=== PATIENT | male | born 1985 | race Caucasian/White ===

== ENCOUNTER → 2017-09-10 15:04 | Outpatient (CLI) | payer OTHER, SELFPAY ==
--- NOTE | 2017-09-10 15:07 | CT_ITS ---
STUDY: CTA CHEST REASON FOR EXAM: Male, 32 years old. Chest pain. History of PE. RADIATION DOSAGE (If Supplied By Facility): CTDIvol = ( 16.72 ) mGy, DLP = ( 797.14 ) mGycm TECHNIQUE: The examination was performed with the intravenous administration of 100 ml of Isovue 370 contrast material. Post-processing of the angiographic images was performed, with multiplanar reformation and 3D reconstruction. Individualized dose optimization techniques were used for this CT. COMPARISON: CTA of the chest, April 05, 2017. FINDINGS: Normal enhancement of the main pulmonary artery and right and left pulmonary arteries. There is small nonoccluding pulmonary emboli. Right lower lobe peripheral arteries. These are best seen on images 86 through 118. There are minimal nonobstructing pulmonary emboli in the left lower lobe peripheral pulmonary arteries are best seen on image 112. Normal thoracic aorta and visualized great vessels. There is no demonstrated aortic dissection. Normal heart and pericardium. Normal mediastinum. Normal hilar regions. Normal visualized trachea and bronchi. The lungs are well expanded. Normal pulmonary parenchyma. Normal pleura. Normal chest wall structures. Normal osseous structures. Normal visualized upper abdomen. CT/CTA Chest W/WO Contrast IMPRESSION: 1. Nonobstructing pulmonary emboli in the bilateral lower lobe peripheral pulmonary arteries. This was not seen on study of April 05, 2017. 2. No acute cardiopulmonary disease. N.B. : Dr. Elena Grissom, Covering Physician, confirmed on 09/10/2017 16:33:01 (ET) that the referring physician received the results and did not require a verbal consultation. Electronically Signed: Anival Hicks DO at 16:28 EDT Tel [phone], Service support , N.B. : Dr. Elena Grissom, Covering Physician, confirmed on 09/10/2017 16:33:01 (ET) that the referring physician received the results and did not require a verbal consultation.
--- NOTE | 2017-09-10 15:53 | RAD_ITS ---
STUDY: X-RAY - LEFT CALCANEUS REASON FOR EXAM: Male, 32 years old. Heel pain TECHNIQUE: 2 view(s) of the calcaneus were obtained. COMPARISON: None. FINDINGS: Normal visualized calcaneus. Normal visualized soft tissue. RAD/Calcaneus min 2 Views IMPRESSION: Normal x-ray examination of the calcaneus. Electronically Signed: Jose Manuel Vegas DO at 21:23 EDT Tel [phone], Service support ,
== END ==
PROVIDERS: Family Provider Internal Medicine; PCP Internal Medicine; Visit Provider Internal Medicine
DX: M79.672 Pain in left foot (principal); R07.9 Chest pain, unspecified
CPT/HCPCS: 71275; 73650; Q9967

== ENCOUNTER 2017-09-10 15:59 | Inpatient (IN) | payer OTHER, SELFPAY ==
[2017-09-10] VITALS (11 sets, daily range): BP systolic 120–153; BP diastolic 62–79; PULSE 68–113; RESP 12–18; TEMP 36.6–37.1; O2SAT 96–98; BMI 35.4
--- NOTE | 2017-09-10 16:23 | EKG12_ITS ---
Test Reason : SOB Blood Pressure : / mmHG Vent. Rate : 083 BPM Atrial Rate : 083 BPM P-R Int : 132 ms QRS Dur : 092 ms QT Int : 360 ms P-R-T Axes : 044 051 013 degrees QTc Int : 423 ms Normal sinus rhythm Nonspecific ST and T wave abnormality Abnormal ECG Confirmed by WENDIE STOLL, AMARILIS ([id number]), editorial assistant LEOBARDO FRAUSTO ([id number]) on 09/15/2017 2:17:14 PM Referred By: DALE Confirmed By:AMARILIS PRESSLEY MD
--- NOTE | 2017-09-10 16:24 | VDLE_ITS ---
Reason For Study: PE Procedure LEFT Exam performed portable in ED. GSV is normal. The exam was diagnostic. CFV is compressible, spontaneous, phasic, A preliminary report was called and/or competent, and demonstrates normal faxed to Dr. Urbina. augmentation. Prox and Mid FV are compressible with normal venous flow patterns. Distal FV, POP V, T/P Trunk, PTV, Peroneal V, and Gastroc V are dilated and noncompressible. Interpretation Summary Acute deep vein thrombosis is noted in the left distal femoral vein. Acute deep vein thrombosis is noted in the left popliteal vein. Acute deep vein thrombosis is noted in the left tibio-peroneal trunk. Acute deep vein thrombosis is noted in the left posterior tibial vein. Acute deep vein thrombosis is noted in the left peroneal vein. Acute deep vein thrombosis is noted in the left gastrocnemius vein. The left common femoral vein and proximal/mid-femoral vein are patent, compressible, and competent. The left great saphenous vein is patent and compressible segmentally. Ordering Physician: Dougie Urbina Referring Physician: Heaven Cota M.D. Performed By: Vega Burton RVT
--- NOTE | 2017-09-10 16:42 | ED.RN ---
[facility] in pt room doing venous doppler.
[2017-09-10 16:45] LABS: Absolute Lymphocyte Count 3.11 X10^3/ul (0.83-4.51); Absolute Neutrophil Count 6.5 X10^3/uL (2.0-7.7); Basophil# 0.04 X10^3/uL; Basophil% 0.4 % (0-1); Eosinophil# 0.33 X10^3/uL; Hematocrit 42.3 % (40-54); Hemoglobin 14.1 g/dl (13.0-16.5); Lymphocyte # 3.11 X10^3/ul (4.0); Lymphocyte % 28.3 % (19-41); Mean Corp Hgb Conc 33.3 g/gl (32-36); Mean Corpuscular Hgb 31.3 pg (27.0-32.0); Mean Corpuscular Volume 93.8 fL (80-94); Monocyte# 0.96 X10^3/uL; Monocyte% 8.7 % (0-10); Neutrophil # 6.54 X10^3/uL (2.7-7.7); Neutrophil % 59.4 % (47-70); Platelet Count 291 K/mm3 (150-450); RBC Distribution Width SD 44.4 fl (35.1-43.9); Red Blood Count 4.51 M/mm3 (4.6-6.2)
[2017-09-10] MEDS: Ondansetron 4 MG/2 ML Vial IV (16:48)
[2017-09-10] MEDS: Morphine 4 MG/ML Syringe IV ×2 (16:48→18:28)
[2017-09-10 16:53] LABS: POSITIVE COUNT NO; POSITIVE DIFFERENTIAL NO; POSITIVE MORPHOLOGY NO
[2017-09-10 17:03] LABS: ALB/GLOB Ratio 1.1 RATIO (0.9-2.4); AST(SGOT) 16 U/L (15-37); Alanine Aminotransfer ALT/SGPT 27 U/L (16-61); Albumin, Serum 3.7 g/dL (3.2-5.0); Alkaline Phosphatase 86 U/L (45-117); Anion Gap 5 (5-15); BUN 14 mg/dL (7-18); BUN/Creat Ratio 14.3 RATIO (10-20); Calcium,Total 8.6 mg/dL (8.5-10.1); Chloride 109 mmol/L (98-107); Creatinine, Serum 0.98 mg/dL (0.70-1.30); EST Glomerular Filtration Rate 93 mL/min (>60); Est Glom Filt Rate - Afr Amer 113 mL/min (>60); Estimated Creatinine Clearance 123.49 ml/min; Globulin 3.5 g/dL (2.2-4.2); Glucose 83 mg/dL (74-106); Protein, Total 7.2 g/dL (6.4-8.2); Sodium Level 143 mmol/L (136-145)
[2017-09-10 17:16] LABS: Prothrombin Time (Protime)PT. 12.8 SECONDS (11.7-14.9)
[2017-09-10 17:17] LABS: Partial Thromboplast Time 27.1 Seconds (24.1-36.2)
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
--- NOTE | 2017-09-10 19:24 | EKG12_ITS ---
Test Reason : PE Blood Pressure : / mmHG Vent. Rate : 069 BPM Atrial Rate : 069 BPM P-R Int : 124 ms QRS Dur : 092 ms QT Int : 378 ms P-R-T Axes : 014 044 -04 degrees QTc Int : 405 ms Normal sinus rhythm with sinus arrhythmia Nonspecific ST abnormality Abnormal ECG When compared with ECG of 10-SEP-2017 16:46, MANUAL COMPARISON REQUIRED, DATA IS UNCONFIRMED Confirmed by WENDIE STOLL, AMARILIS ([id number]), magazine editor LEOBARDO FRAUSTO ([id number]) on 09/15/2017 3:29:48 PM Referred By: DAYTON Confirmed By:AMARILIS PRESSLEY MD
[2017-09-10] MEDS: 0.9% Normal Saline 1,000 ML 100 ML IV (19:47)
[2017-09-10] MEDS: oxyCODONE 5 MG Tablet PO (19:47)
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
[2017-09-10] MEDS: HYDROmorphone 0.5 MG/0.5 ML SYRINGE IV (20:50)
[2017-09-10] MEDS: Enoxaparin 150 MG/ML Syringe 130 MG SC (20:51)
[2017-09-10 21:48] LABS: BNP,B-Type NATRIURETIC PEPTIDE 13.6 pg/mL (0-100)
[2017-09-11] VITALS (18 sets, daily range): BP systolic 101–126; BP diastolic 54–66; PULSE 44–76; RESP 12–18; TEMP 36.6–37; O2SAT 95–100
[2017-09-11] MEDS: HYDROmorphone 0.5 MG/0.5 ML SYRINGE IV ×4 (00:05→11:38)
[2017-09-11] MEDS: 0.9% Normal Saline 1,000 ML 100 ML IV ×2 (05:25→14:52)
[2017-09-11 06:29] LABS: Amphetamine Urine VISTA NEGATIVE (<1000 ng/mL); Barbiturate Urine VISTA NEGATIVE (< 200 ng/mL); Benzodiazepine Urine VISTA NEGATIVE (< 200 ng/mL); Cocaine Urine VISTA NEGATIVE (< 300 ng/mL); Ecstacy Urine VISTA NEGATIVE (< 500 ng/mL); Methadone Urine VISTA NEGATIVE (< 300 ng/mL); PCP Urine VISTA NEGATIVE (< 25 ng/mL); THC Urine VISTA POSITIVE (< 50 ng/mL); Vista UDS pH Range 5
[2017-09-11 07:14] LABS: Hematocrit 39.9 % (40-54); Hemoglobin 13.5 g/dl (13.0-16.5); Mean Corp Hgb Conc 33.8 g/gl (32-36); Mean Corpuscular Hgb 32.1 pg (27.0-32.0); Mean Platelet Vol. 9.2 fl (6.2-12.0); Platelet Count 278 K/mm3 (150-450); RBC Distribution Width CV 13.1 % (11.6-14.6); RBC Distribution Width SD 44.2 fl (35.1-43.9); White Blood Count 9.2 K/mm3 (4.4-11.0)
[2017-09-11 07:15] LABS: Scan Indicated on CBC? Y/N NO
[2017-09-11 07:41] LABS: Anion Gap 5 (5-15); BUN 12 mg/dL (7-18); BUN/Creat Ratio 14.5 RATIO (10-20); Calcium,Total 8.2 mg/dL (8.5-10.1); Chloride 112 mmol/L (98-107); Cholesterol 173 mg/dL (200); Creatinine, Serum 0.83 mg/dL (0.70-1.30); EST Glomerular Filtration Rate 113 mL/min (>60); Est Glom Filt Rate - Afr Amer 136 mL/min (>60); Glucose 84 mg/dL (74-106); High Density Lipoprotein 30 mg/dL; Potassium 4.2 mmol/L (3.5-5.1); Sodium Level 142 mmol/L (136-145); Triglycerides 130 mg/dL; Very Low Density Lipoprotein 26 mg/dL (5-40)
[2017-09-11] MEDS: APIXABAN 5 MG TABLET 10 MG PO (08:29)
[2017-09-11] MEDS: 0.9% NaCl Peripheral Flush Adult/Peds IV ×2 (11:38→19:57)
[2017-09-11] MEDS: Acetaminophen 325 MG Tablet 650 MG PO (12:46)
[2017-09-11] MEDS: oxyCODONE 5 MG Tablet PO (12:47)
--- NOTE | 2017-09-11 13:57 | CASEMGMT ---
See RN CM Assessment. DC Plan: home on dc. Pt will need to know copay amount for any anticoagulants ordered. Uses [facility] pharmacy. Mariam VILLALOBOSN RN ACM
[2017-09-11] MEDS: HYDROmorphone 1 MG/ML Syringe IV (14:45)
--- NOTE | 2017-09-11 14:50 | ECHOD_ITS ---
Reason For Study: PULM HTN Procedure This was a 2D Doppler, Color Flow transthoracic echocardiogram. Exam performed portable in patient room. Left Ventricle Normal LV size. Left ventricular systolic function is normal. The estimated ejection fraction is 60 %. No evidence for diastolic dysfunction. No regional wall motion abnormalities noted. Right Ventricle Normal RV size. Normal systolic function. Atria Normal left atrium. Normal right atrium. Mitral Valve Normal mitral valve. Tricuspid Valve Normal tricuspid valve. Mild tricuspid valve insufficiency. Pulmonary artery systolic pressure is 20 mmHg. Aortic Valve Normal aortic valve. Trisinus/trileaflet aortic valve. Pulmonic Valve Normal pulmonic valve. Great Vessels Normal aortic root. The pulmonary artery is normal size. Normal inferior vena cava. Pericardium/Pleural No pericardial effusion. MMode/2D Measurements & Calculations LVIDd: 4.5 cm IVSd: 1.2 cm Ao root diam: 3.5 cm LVIDs: 3.3 cm LVPWd: 1.1 cm LA dimension: 3.8 cm RVDd: 4.1 cm FS: 27.4 % LAV(MOD-bp): 54.1 ml LA A4 area: 19.6 cm2 RA A4 area: 18.4 cm2 LAV(MOD-bp) Indexed: 21.8 ml/m2 LAV(MOD-sp2): 53.7 ml LAV(MOD-sp4): 53.2 ml Doppler Measurements & Calculations MV E max maame: 85.0 cm/sec Ao V2 max: 121.6 cm/sec LV V1 max: 93.9 cm/sec MV A max maame: 35.9 cm/sec Ao max P.9 mmHg LV V1 max P.5 mmHg MV E/A: 2.4 PA V2 max: 84.6 cm/sec TR max maame: 195.1 cm/sec TR max P.5 mmHg Interpretation Summary Normal LV size. Left ventricular systolic function is normal. The estimated ejection fraction is 60 %. No evidence for diastolic dysfunction. Mild tricuspid valve insufficiency. Ordering Physician: Cindy Gonzalez Referring Physician: Heaven Cota M.D. Performed By: Mary Jo Fang, MELY, RVT
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
[2017-09-11] MEDS: HYDROmorphone PCA 0.2 MG/ML 100 ML BAG 20 MG IV (16:17)
[2017-09-11] MEDS: Enoxaparin 120 MG/0.8 ML Syringe SC (17:14)
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
[2017-09-11] MEDS: Ondansetron 4 MG/2 ML Vial IV (19:57)
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
[2017-09-11] MEDS: Senna/Docusate Sodium 1 Tablet 2 TABLET PO (22:28)
[2017-09-12] VITALS (20 sets, daily range): BP systolic 96–129; BP diastolic 48–84; PULSE 45–85; RESP 16–20; TEMP 36.1–36.8; O2SAT 93–100
[2017-09-12] MEDS: 0.9% Normal Saline 1,000 ML 100 ML IV ×2 (00:13→08:46)
[2017-09-12] MEDS: Enoxaparin 120 MG/0.8 ML Syringe SC ×2 (06:15→18:06)
[2017-09-12] MEDS: Ondansetron 4 MG/2 ML Vial IV (06:21)
[2017-09-12] MEDS: 0.9% NaCl Peripheral Flush Adult/Peds IV ×2 (06:22→20:48)
--- NOTE | 2017-09-12 14:08 | NURSING ---
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
[2017-09-12] MEDS: oxyCODONE 5 MG Tablet 10 MG PO (20:09)
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
[2017-09-12] MEDS: fentaNYL 25 MCG Patch TRANSDERM. (22:58)
[2017-09-12] MEDS: Senna/Docusate Sodium 1 Tablet 2 TABLET PO (22:58)
[2017-09-13] MEDS: oxyCODONE 5 MG Tablet PO ×3 (00:14→10:01)
[2017-09-13 03:10] VITALS: PULSE 62
[2017-09-13 05:01] VITALS: BP 125/62; PULSE 77; RESP 16; TEMP 36.9; O2SAT 98
[2017-09-13] MEDS: Enoxaparin 120 MG/0.8 ML Syringe SC (05:01)
[2017-09-13 06:29] LABS: Prothrombin Time (Protime)PT. 13.1 SECONDS (11.7-14.9)
[2017-09-13 06:36] LABS: Hematocrit 41.1 % (40-54); Mean Corp Hgb Conc 34.1 g/gl (32-36); Mean Corpuscular Volume 94.1 fL (80-94); Mean Platelet Vol. 9.6 fl (6.2-12.0); Platelet Count 294 K/mm3 (150-450); RBC Distribution Width CV 12.5 % (11.6-14.6); RBC Distribution Width SD 42.3 fl (35.1-43.9); Red Blood Count 4.37 M/mm3 (4.6-6.2); White Blood Count 6.5 K/mm3 (4.4-11.0)
[2017-09-13 06:37] LABS: Scan Indicated on CBC? Y/N NO
[2017-09-13 06:55] LABS: Anion Gap 5 (5-15); BUN 11 mg/dL (7-18); BUN/Creat Ratio 12.2 RATIO (10-20); Calcium,Total 8.9 mg/dL (8.5-10.1); Chloride 105 mmol/L (98-107); EST Glomerular Filtration Rate 102 mL/min (>60); Est Glom Filt Rate - Afr Amer 124 mL/min (>60); Estimated Creatinine Clearance 134.46 ml/min; Glucose 78 mg/dL (74-106); Potassium 4.8 mmol/L (3.5-5.1); Sodium Level 139 mmol/L (136-145)
[2017-09-13 07:37] VITALS: PULSE 53
[2017-09-13 07:50] VITALS: O2SAT 97
[2017-09-13 10:29] VITALS: BP 119/58; PULSE 67; RESP 16; TEMP 36.6; O2SAT 98
[2017-09-13 11:33] VITALS: PULSE 71
--- NOTE | 2017-09-13 12:09 | PCM.DC ---
- Discharge Diagnoses Current Active Problems: Current Active and Chronic Problems Leg DVT (deep venous thromboembolism), acute (Acute) Bilateral pulmonary embolism (Acute) You will use the following diet at home:: No restrictions Your food should be the consistency of: Regular Your liquids should be the consistency of: Regular/Thin Instructions: Taking?Coumadin Allergies/Adverse Reactions: Allergies No Known Allergies Allergy (Verified 09/10/17 16:01) Medications to take at Discharge Enoxaparin Sodium [Lovenox] 120 mg SQ Q12H #15 syringe 09/13/17 Oxycodone [Oxyir] 10 mg PO Q6H PRN PRN 3 Days #25 tablet 09/13/17 Warfarin [Coumadin] 5 mg PO DAILY #15 tab 09/13/17 The following prescriptions were given: Oxycodone [Oxyir] 10 mg PO Q6H PRN PRN 3 Days #25 tablet PRN Reason: Severe Pain (6-10/10) Enoxaparin Sodium [Lovenox] 120 mg SQ Q12H #15 syringe Warfarin [Coumadin] 5 mg PO DAILY #15 tab Primary Care Physician: Heaven Cota DO [Primary Care Provider] - Please follow up with your Primary Care Physician in: 5 to 7 days. Please notify the office tomorrow that you are taking Coumadin
--- NOTE | 2017-09-13 12:20 | NURSING ---
DR JONES IN ROOM WITH PATIENT AND DISCUSSING QUESTIONS AND PLAN OF CARE.
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
[2017-09-16 16:09] LABS: Protein C Antigen 78 % (60-150); Protein C, Functional 107 % (73-180)
[2017-09-16 18:23] LABS: Anti-Cardiolipin Ab, IgG, Qn < 9 GPL U/mL (0-14); Anti-Cardiolipin Ab, IgM, Qn < 9 MPL U/mL (0-12); Antithrombin 3 Function 100 % (75-135); Beta-2-Glycoprotein I IgA <9 (0-25); Beta-2-Glycoprotein I IgG <9 (0-20); Beta-2-Glycoprotein I IgM <9 (0-32)
== END 2017-09-13 13:15 | disposition home or self-care (01) | DRG 299 ==
LOC: ED 16:35 → PCU 18:53
PROVIDERS: Family Medicine; Admitting Provider Internal Medicine; Emergency Provider Emergency Medicine; Family Provider Internal Medicine; PCP Internal Medicine; Visit Provider Hospitalist
DX: I82.432 Acute embolism and thrombosis of left popliteal vein (principal); I26.99 Other pulmonary embolism without acute cor pulmonale; R04.2 Hemoptysis; R07.89 Other chest pain; Z79.01 Long term (current) use of anticoagulants
CPT/HCPCS: 36415; 80048; 80053; 80061; 80307; 81240; 81241; 83880; 84484; 85025; 85027; 85300; 85302; 85303; 85610; 85730; 86146; 86147; 93005; 93306; 93971; 94762; 99283; 99406; J7030; Q9957; A4216; J1170; J2405

== ENCOUNTER → 2017-09-18 13:51 | Outpatient (CLI) | payer OTHER, SELFPAY ==
[2017-09-18 14:39] LABS: International Normalized Ratio 1.4
== END ==
PROVIDERS: Family Provider Internal Medicine; PCP Internal Medicine; Visit Provider Internal Medicine
DX: I26.99 Other pulmonary embolism without acute cor pulmonale (principal)
CPT/HCPCS: 85610

== ENCOUNTER → 2017-09-21 13:38 | Outpatient (CLI) | payer OTHER, SELFPAY ==
[2017-09-21 14:02] LABS: International Normalized Ratio 1.6; Prothrombin Time (Protime)PT. 19.3 SECONDS (11.7-14.9)
== END ==
PROVIDERS: Family Provider Internal Medicine; PCP Internal Medicine; Visit Provider Internal Medicine
DX: I82.409 Acute embolism and thrombosis of unspecified deep veins of unspecified lower extremity (principal)
CPT/HCPCS: 85610